=== PATIENT | female | born 1960 | race Two or more races ===

== ENCOUNTER → 2024-10-12 | Emergency (ER) | payer BC ==
[~2024-10-12] VITALS: Ht 175.3 cm; Wt 57.6 kg
== END | disposition home or self-care (01) ==
LOC: ER 15:45
DX: S82.092A Other fracture of left patella, initial encounter for closed fracture (principal); W19.XXXA Unspecified fall, initial encounter; Y93.89 Activity, other specified; Y92.89 Other specified places as the place of occurrence of the external cause; Y99.8 Other external cause status; M12.569 Traumatic arthropathy, unspecified knee; Z88.6 Allergy status to analgesic agent

== ENCOUNTER 2024-10-23 11:08 | Outpatient (CLI) | payer BC | END 2024-10-23 11:09 | disposition home or self-care (01) | LOC: NUCLEAR 11:08 | PROVIDERS: ATTEND Obstetrics & Gynecology | DX: M81.0 Age-related osteoporosis without current pathological fracture (principal) ==